=== PATIENT | female | born 1960 | race Caucasian/White ===

== ENCOUNTER 2023-03-20 10:56 | Outpatient (RCR) | payer OTHER, SELFPAY ==
--- NOTE | 2023-03-20 12:14 | PTOPEVAL1 ---
Assessment and note entered by Jaxson Mike Evaluation Information Assessment Status Evaluation Diagnosis s/p right TKA Onset 03/15/23 Subjective Information Pt. reports that she underwent surgery on 03/15/23. She reports that pain has been very painful since surgery. She reports that she has been exercising at home daily. She reports that she is able to sleep pretty well. She states that pain is most notable with any movement of the knee. Pt . reports that she was active before surgery. She reports that she has not been able to walk long distance for awhile due to her knee. She reports that her goal is to return to walking longer distances and be able to walk normally. Reported Pain Level Pain Score 10: Self Report Assessment PT Clinical Summary Pt. is a 62 year old female who enters the clinic 5 days post right TKA. She presents with impaired gait, impaired ROM, edema and generalized weakness. Continued skilled PT is indicated in order to improve these areas to allow the pt. to achieve her goal of walking normally. Plan of Care Interventions Electrical Stimulation,Gait Training,Hot Pack/Cold Pack,Intermittent Compression,Manual Therapy, Neuro Re-education,Patient/Caregiver Educati, Therapeutic Activities,Therapeutic Exercise PT Services Indicated Yes Treatment Frequency and 3x/week x 12 visits Duration These treatments will address the objective and functional deficits as defined above. The patient will be advanced safely and appropriately in order for the patient to progress towards his/her prior level of function. Additional exercises will be introduced and as well as a comprehensive home exercise program upon discharge, if needed, ?to ensure carryover of functional gains achieved in the clinic. This treatment plan has been reviewed and agreement upon by the patient.
--- NOTE | 2023-03-20 12:14 | OPREHPOC ---
Outpatient Therapy Plan of Care This is a Multidisciplinary Plan of Care that may contain components documented by all disciplines (PT, OT, and ST.) PT Problem 1 PT Problem #1 Knowledge Deficit PT Goal 1 Goal Independent with a HEP addressing mobility uatsdin and strength. Target Visit 2 PT Problem 2 PT Problem #2 Impaired Range of Motion PT Goal 1 Goal Pt. will achieve 0-120 degrees right knee AROM Target Visit 12 PT Problem 3 PT Problem #3 Impaired Gait PT Goal 1 Goal Pt. will ambulate independently without an AD with equal right and left stance time over a distance of 1000' or greater in 6 minutes Target Visit 12 PT Goal 2 Goal Pt. will navigate steps with an reciprocal pattern without an AD. Target Visit 12 PT Problem 4 PT Problem #4 Impaired Strength PT Goal 1 Goal Pt. will present with 4+/5 gross right l.e. strength. Target Visit 12 PT Problem 5 PT Problem #5 Edema PT Goal 1 Goal Pt. will decrease knee joint line girth measurements to 43cm or less indicating less edema and promoting improved mobility. Target Visit 12
--- NOTE | 2023-05-15 17:56 | OPREHPOC ---
Outpatient Therapy Plan of Care This is a Multidisciplinary Plan of Care that may contain components documented by all disciplines (PT, OT, and ST.) PT Problem 1 PT Problem #1 Knowledge Deficit PT Goal 1 Goal Independent with a HEP addressing mobility sabianism and strength. Target Visit 15 PT Problem 2 PT Problem #2 Impaired Range of Motion PT Goal 1 Goal Pt. will achieve 0-120 degrees right knee AROM Target Visit 22 Comment continue PT Problem 3 PT Problem #3 Impaired Gait PT Goal 1 Goal Pt. will ambulate independently without an AD with equal right and left stance time over a distance of 1000' or greater in 6 minutes Target Visit 22 Comment continue PT Goal 2 Goal Pt. will navigate steps with an reciprocal pattern without an AD. Target Visit 22 Comment continue PT Problem 4 PT Problem #4 Impaired Strength PT Goal 1 Goal Pt. will present with 4+/5 gross right l.e. strength. Target Visit 22 Comment continue PT Problem 5 PT Problem #5 Edema PT Goal 1 Goal Pt. will decrease knee joint line girth measurements to 43cm or less indicating less edema and promoting improved mobility. Target Visit 22 Comment progressing
--- NOTE | 2023-05-15 17:56 | PTOPREEVAL ---
Assessment and note entered by Stephanie Martins DPT Evaluation Information Assessment Status Re-evaluation Diagnosis s/p right TKA Onset 03/15/23 Subjective Information Patient reports she returns today after having Covid during the holiday's. She reports she has difficulty stair navigation. She reports she was not compliant with HEP while sick. She is not using an AD. Reported Pain Level Pain Score 6: Self Report Assessment PT Clinical Summary Mrs. Arriaga is a 62 year old female who returns to PT today after break due to illness. She was progressing well prior to onset of illness. She continues to demonstrate decrease R knee strength and ROM as well as impaired gait mechanincs. She reports she is able to ambulate with no AD but continues to have difficulty with stair navigation . Patient would benefit from continued skilled PT to address remaining impairments and return to PLOF. Plan of Care Interventions Electrical Stimulation,Gait Training,Hot Pack/Cold Pack,Intermittent Compression,Manual Therapy, Neuro Re-education,Patient/Caregiver Educati, Therapeutic Activities,Therapeutic Exercise PT Services Indicated Yes Treatment Frequency and continue 3x/week x 12 visits Duration These treatments will address the objective and functional deficits as defined above. The patient will be advanced safely and appropriately in order for the patient to progress towards his/her prior level of function. Additional exercises will be introduced and as well as a comprehensive home exercise program upon discharge, if needed, ?to ensure carryover of functional gains achieved in the clinic. This treatment plan has been reviewed and agreement upon by the patient.
--- NOTE | 2023-06-09 12:55 | PCPTNOTE ---
Patient reports that something came up and she cannot make her session today.
== END 2023-06-07 20:00 | disposition home or self-care (01) ==
LOC: CHSPT 10:56
PROVIDERS: PCP Nurse Practitioner Family; Visit Provider Orthopaedic Surgery
DX: Z47.1 Aftercare following joint replacement surgery (principal); M17.11 Unilateral primary osteoarthritis, right knee; Z96.651 Presence of right artificial knee joint
CPT/HCPCS: 97016; 97110; 97161; 97530

== ENCOUNTER 2023-07-25 15:08 | Outpatient (RCR) | payer OTHER, SELFPAY ==
--- NOTE | 2023-07-21 11:09 | PCPTNOTE ---
patient called to cancel due to emergency with her dog
--- NOTE | 2023-07-25 16:30 | OPREHPOC ---
Outpatient Therapy Plan of Care This is a Multidisciplinary Plan of Care that may contain components documented by all disciplines (PT, OT, and ST.) PT Problem 1 PT Problem #1 Knowledge Deficit PT Goal 1 Goal patient to demonstrate independence with HEP Target Visit 6 PT Problem 2 PT Problem #2 Pain PT Goal 1 Goal 1. Patient to report highest pain at 2/10 2. 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 patient to improve LEFS score by 20% 2. patient to report ability to dress with no limitations 3. patient to ambulate 1200' during 6 min walk test Target Visit 12
--- NOTE | 2023-07-25 16:30 | PTOPEVAL1 ---
Assessment and note entered by Stephanie Song DPT Evaluation Information Assessment Status Evaluation Diagnosis L knee pain Onset 07/17/23 Subjective Information patient underwent L TKA on 07/17/23. she previously had a R TKA on 03/15/24. she reports that since surgery that L LE has felt very weak and is having difficulty lifting her L LE into bed. she reports that she has difficulty putting a sock on her L foot. she reports pain has been elevated. she denies redness or warmth in the L calf. she reports has been using the FWW since surgery but prior was not using an AD. Patient is retired. Reported Pain Level Pain Score 9: Self Report Assessment PT Clinical Summary Mrs. Arriaga is a 62 year old female who presents to PT with L knee pain s/p L TKA. She demonstrates impaired gait, decreased L knee strength and decreased L knee ROM limiting her ability to ambulate house hold distances, navigate stairs, get into and out of bed and complete house hold tasks. She would benefit from skilled PT to address impairments and return to PLOF. Plan of Care Interventions Electrical Stimulation,Gait Training,Hot Pack/Cold Pack,Intermittent Compression,Manual Therapy, Neuro Re-education,Patient/Caregiver Educati, Therapeutic Activities,Therapeutic Exercise PT Services Indicated Yes Treatment Frequency and 3x weekly for 12 visits Duration These treatments will address the objective and functional deficits as defined above. The patient will be advanced safely and appropriately in order for the patient to progress towards his/her prior level of function. Additional exercises will be introduced and as well as a comprehensive home exercise program upon discharge, if needed, ?to ensure carryover of functional gains achieved in the clinic. This treatment plan has been reviewed and agreement upon by the patient.
--- NOTE | 2023-07-31 13:45 | PCPTNOTE ---
Pt. called and cancelled due to not feeling well today. Jaxson Mike, MPT
--- NOTE | 2023-08-18 17:27 | OPREHPOC ---
Outpatient Therapy Plan of Care This is a Multidisciplinary Plan of Care that may contain components documented by all disciplines (PT, OT, and ST.) PT Problem 1 PT Problem #1 Knowledge Deficit PT Goal 1 Goal patient to demonstrate independence with HEP Target Visit 6 PT Problem 2 PT Problem #2 Pain PT Goal 1 Goal 1. Patient to report highest pain at 2/10 2. Patient to report ability to sleep with disturbance due to R knee pain Target Visit 12 Comment progressing PT Problem 3 PT Problem #3 Impaired Range of Motion PT Goal 1 Goal Patient to demonstrate 0-120deg of L knee AROM to return to stair navigation at PLOF Target Visit 12 Comment progressing PT Problem 4 PT Problem #4 Impaired Strength PT Goal 1 Goal Patient to demonstrate 5/5 L knee strength to return to squatting to cone picker objects and ambulate prolonged distances for grocery shopping Target Visit 12 Comment prongressing PT Problem 5 PT Problem #5 Impaired Functional Mobil PT Goal 1 Goal 1. patient to improve LEFS score by 20% 2. patient to report ability to dress with no limitations 3. patient to ambulate 1200' during 6 min walk test Target Visit 12 Comment progressing
--- NOTE | 2023-08-18 17:28 | PTOPPROG ---
Assessment and note entered by Stephanie Song DPT Evaluation Information Assessment Status Re-evaluation Diagnosis L knee pain Onset 07/17/23 Subjective Information patient reports she feel this morning and tripped over her foot but reports no knee pain. she reports the knee is progressing well. she reports she is using a cane about 50% of the time. she reports sitting for long periods of time increased pain. Assessment PT Clinical Summary Ms. Arriaga has attended 10 visits of skilled PT with good progression towards goals. She demonstrate -3-108deg of L knee ROM and improved strength. She reports use of cane 50% of the time. Without use of AD patient continues to demonstrates antalgic gait with decreased WB through the L LE during stance and decreased L knee flexion during swing phase. She would benefit from continued skilled PT to address remaining impairments and return to PLOF. Plan of Care Interventions Electrical Stimulation,Gait Training,Hot Pack/Cold Pack,Intermittent Compression,Manual Therapy, Neuro Re-education,Patient/Caregiver Educati, Therapeutic Activities,Therapeutic Exercise PT Services Indicated Yes Treatment Frequency and 3x weekly for 12 visits Duration These treatments will address the objective and functional deficits as defined above. The patient will be advanced safely and appropriately in order for the patient to progress towards his/her prior level of function. Additional exercises will be introduced and as well as a comprehensive home exercise program upon discharge, if needed, ?to ensure carryover of functional gains achieved in the clinic. This treatment plan has been reviewed and agreement upon by the patient.
--- NOTE | 2023-08-18 17:37 | PTOPPROG ---
Assessment and note entered by Stephanie Song DPT Evaluation Information Assessment Status Re-evaluation Diagnosis L knee pain Onset 07/17/23 Subjective Information patient reports she feel this morning and tripped over her foot but reports no knee pain. she reports the knee is progressing well. she reports she is using a cane about 50% of the time. she reports sitting for long periods of time increased pain. Assessment PT Clinical Summary Ms. Arriaga has attended 10 visits of skilled PT with good progression towards goals. She demonstrate -3-108deg of L knee ROM and improved strength. She reports use of cane 50% of the time. Without use of AD patient continues to demonstrates antalgic gait with decreased WB through the L LE during stance and decreased L knee flexion during swing phase. She would benefit from continued skilled PT to address remaining impairments and return to PLOF. Plan of Care Interventions Electrical Stimulation,Gait Training,Hot Pack/Cold Pack,Intermittent Compression,Manual Therapy, Neuro Re-education,Patient/Caregiver Educati, Therapeutic Activities,Therapeutic Exercise PT Services Indicated Yes Treatment Frequency and continue with remaining 2 visits Duration These treatments will address the objective and functional deficits as defined above. The patient will be advanced safely and appropriately in order for the patient to progress towards his/her prior level of function. Additional exercises will be introduced and as well as a comprehensive home exercise program upon discharge, if needed, ?to ensure carryover of functional gains achieved in the clinic. This treatment plan has been reviewed and agreement upon by the patient.
--- NOTE | 2023-08-21 13:08 | PCPTNOTE ---
Patient cancelled session today. Patient states she will call back to reschedule.
--- NOTE | 2023-08-28 17:00 | OPREHPOC ---
Outpatient Therapy Plan of Care This is a Multidisciplinary Plan of Care that may contain components documented by all disciplines (PT, OT, and ST.) PT Problem 1 PT Problem #1 Knowledge Deficit PT Goal 1 Goal patient to demonstrate independence with HEP Target Visit 6 Progress Met PT Problem 2 PT Problem #2 Pain PT Goal 1 Goal 1. Patient to report highest pain at 2/10 2. Patient to report ability to sleep with disturbance due to R knee pain Target Visit 16 Comment progressing PT Problem 3 PT Problem #3 Impaired Range of Motion PT Goal 1 Goal Patient to demonstrate 0-120deg of L knee AROM to return to stair navigation at PLOF Target Visit 16 Comment progressing PT Problem 4 PT Problem #4 Impaired Strength PT Goal 1 Goal Patient to demonstrate 5/5 L knee strength to return to squatting to shredder picker objects and ambulate prolonged distances for grocery shopping Target Visit 16 Progress Not Met PT Problem 5 PT Problem #5 Impaired Functional Mobil PT Goal 1 Goal 1. patient to improve LEFS score by 20% 2. patient to report ability to dress with no limitations, met 3. patient to ambulate 1200' during 6 min walk test, met Target Visit 16 Comment progressing
--- NOTE | 2023-08-28 17:00 | PTOPREEVAL ---
Assessment and note entered by Stephanie Song DPT Evaluation Information Assessment Status Re-evaluation Diagnosis L knee pain Onset 07/17/23 Subjective Information patient reports she is sleeping without disturbance due to L knee pain. She reports she has been able to dress without limitations. she reports she continues to requires increased time to complete activities. she reports carrying things up stairs is challenging she reports she is not as compliant with HEP as she should be. she reports continued weakness in the L LE and thinks she would benefit from continued skilled PT. Reported Pain Level Pain Score 1: Self Report Assessment PT Clinical Summary Ms. Arriaga has attended 12 visits of skilled PT with good progression towards goals. She demonstrate -3-118deg of L knee ROM and improved strength to 4+/5 with some discomfort. She reports she had discontinued use of AD but does rely on a grocery cart when shopping. She reports no limitations with dressing at this time. She would benefit from continued skilled PT to address remaining impairments and return to PLOF. Plan of Care Interventions Electrical Stimulation,Gait Training,Hot Pack/Cold Pack,Intermittent Compression,Manual Therapy, Neuro Re-education,Patient/Caregiver Educati, Therapeutic Activities,Therapeutic Exercise PT Services Indicated Yes Treatment Frequency and continue 2x weekly for 4 visits Duration These treatments will address the objective and functional deficits as defined above. The patient will be advanced safely and appropriately in order for the patient to progress towards his/her prior level of function. Additional exercises will be introduced and as well as a comprehensive home exercise program upon discharge, if needed, ?to ensure carryover of functional gains achieved in the clinic. This treatment plan has been reviewed and agreement upon by the patient.
--- NOTE | 2023-09-11 16:56 | OPREHPOC ---
Outpatient Therapy Plan of Care This is a Multidisciplinary Plan of Care that may contain components documented by all disciplines (PT, OT, and ST.) PT Problem 1 PT Problem #1 Knowledge Deficit PT Goal 1 Goal patient to demonstrate independence with HEP Target Visit 6 Progress Met PT Problem 2 PT Problem #2 Pain PT Goal 1 Goal 1. Patient to report highest pain at 2/10 2. Patient to report ability to sleep with disturbance due to R knee pain Target Visit 16 Progress Partially Met PT Problem 3 PT Problem #3 Impaired Range of Motion PT Goal 1 Goal Patient to demonstrate 0-120deg of L knee AROM to return to stair navigation at PLOF Target Visit 16 Progress Not Met Comment . PT Problem 4 PT Problem #4 Impaired Strength PT Goal 1 Goal Patient to demonstrate 5/5 L knee strength to return to squatting to cigar packer and picker objects and ambulate prolonged distances for grocery shopping Target Visit 16 Progress Met PT Problem 5 PT Problem #5 Impaired Functional Mobil PT Goal 1 Goal 1. patient to improve LEFS score by 20%, met 2. patient to report ability to dress with no limitations, met 3. patient to ambulate 1200' during 6 min walk test, met Target Visit 16 Progress Met Comment .
--- NOTE | 2023-09-11 16:57 | PTOPDC ---
Assessment and note entered by Stephanie Song DPT Evaluation Information Assessment Status Re-evaluation Diagnosis L knee pain Onset 07/17/23 Subjective Information patient reports that she has had minimal pain. stepping up into the jeep causes B LE discomfort. she reports she is back to doing all of her normal activities. she reports she has been doing less of her HEP and more activities around the home. Reported Pain Level Pain Score 0: Self Report Assessment PT Clinical Summary Ms. Arriaga attended 16 visits of skilled PT with great progress towards goals. She has been able to return to all prior daily activities at [facility]. She continues to lack full extension ROM but demonstrates equal active ROM bilaterally. She has returned to normal gait mechanics and full strength of the knee. She is independent with HEP and is appropriate for DC at this time. Plan of Care PT Services Indicated No
== END 2023-09-11 20:00 | disposition home or self-care (01) ==
LOC: CHSPT 15:08
PROVIDERS: Visit Provider Orthopaedic Surgery
DX: Z47.1 Aftercare following joint replacement surgery (principal); M17.12 Unilateral primary osteoarthritis, left knee; M25.562 Pain in left knee; G89.29 Other chronic pain; Z96.652 Presence of left artificial knee joint
CPT/HCPCS: 97016; 97110; 97112; 97161; 97530